=== PATIENT | female | born 1975 | race Caucasian/White ===

== ENCOUNTER 2017-07-18 15:33 | Emergency (ER) | payer OTHER ==
[2017-07-18 15:42] VITALS: BP 118/61; PULSE 95; TEMP 98.9; BMI 30.8
--- NOTE | 2017-07-18 17:30 | PDOC ---
History of Present Illness - General Chief Complaint: Pain Stated Complaint: LT FOOT PAIN Time Seen by Provider: 07/18/17 16:05 History Source: Patient Exam Limitations: No Limitations - History of Present Illness Initial Comments: 07/18/17 17:28 42 yr female with c/o left ankle pain for 4 days since fall 5 days ago. Pt has history of fall . Pt ambulatory no acute distress. Past History - Past Medical History Allergies/Adverse Reactions: Allergies Allergy/AdvReac Type Severity Reaction Status Date / Time TREE FRUITS Allergy Uncoded 07/18/17 15:41 Home Medications: Ambulatory Orders NK [No Known Home Medication] 07/18/17 Other medical history: NONE - Psycho/Social/Smoking Cessation Hx Anxiety: No Suicidal Ideation: No Smoking History: Never smoked Hx Alcohol Use: No Drug/Substance Use Hx: No Substance Use Type: None *Physical Exam - Vital Signs Last Vital Signs Temp Pulse Resp BP Pulse Ox 98.9 F 95 H 20 118/61 100 07/18/17 15:39 07/18/17 15:39 07/18/17 15:39 07/18/17 15:39 07/18/17 15:39 - Physical Exam General Appearance: Yes: Nourished, Appropriately Dressed HEENT: positive: EOMI, ARMANDO Respiratory/Chest: positive: Lungs Clear, Normal Breath Sounds Cardiovascular: positive: Regular Rhythm, Regular Rate Musculoskeletal: positive: Normal Inspection Extremity: positive: Tender (lateral malleolus left ankle , nv intact, FROM ) Integumentary: positive: Normal Color, Dry, Warm Neurologic: positive: Fully Oriented, Alert, Normal Mood/Affect, Normal Response , Motor Strength 5/5 ED Treatment Course - ADDITIONAL ORDERS Additional order review: Laboratory Results 07/18/17 16:32 Urine HCG, Qual Negative - RADIOLOGY Radiology Studies Ordered: Category Date Time Status ANKLE & FOOT-LEFT* [RAD] Stat Radiology 07/18/17 16:08 Taken Medical Decision Making - Medical Decision Making 07/18/17 17:43 cc: left ankle pain for 4-5 days after fall pt is ambualtory took tylenol earlier today will get xray to r/o fracture motrin for pain *DC/Admit/Observation/Transfer Diagnosis at time of Disposition: Left ankle sprain Qualifiers: Encounter type: initial encounter Involved ligament of ankle: unspecified ligament Qualified Code(s): S93.402A - Sprain of unspecified ligament of left ankle, initial encounter - Discharge Dispostion Disposition: HOME Condition at time of disposition: Good - Referrals Referrals: Joby Jean Baptiste MD [Staff Physician] - - Patient Instructions Additional Instructions: elevate and apply warm compresses to the area of pain every 2hrs for 20 minutes take motrin for pain as needed use the air cast splint while awake remove to sleep and bathe follow with the orthopedist Dr. Jean Baptiste for follow up if symptoms worsen or persist
== END 2017-07-18 18:03 | disposition home or self-care (01) ==
LOC: JERFT 15:33
DX: S93.402A Sprain of unspecified ligament of left ankle, initial encounter (principal); W19.XXXA Unspecified fall, initial encounter; Z91.81 History of falling; Y93.89 Activity, other specified; Y92.89 Other specified places as the place of occurrence of the external cause; Y99.8 Other external cause status
CPT/HCPCS: 73610-TC-LT; 73630-TC-LT; 84703; 99281-25

== ENCOUNTER 2018-12-03 21:41 | Emergency (ER) | payer OTHER ==
[2018-12-03 21:47] VITALS: BP 147/91; PULSE 87; TEMP 98.2
--- NOTE | 2018-12-03 22:29 | PDOC ---
History of Present Illness - General Chief Complaint: Sore Throat Stated Complaint: SORE THROAT Time Seen by Provider: 12/03/18 22:10 History Source: Patient Exam Limitations: No Limitations - History of Present Illness Initial Comments: 12/03/18 22:23 43 year old female with no medical or surgical history presents with complaints of sorethroat x 3 days. Also reports pain in right ear, mouth dryness . Took ibuprofen and tylenol with no relief of symptoms. Denies fever chills or headache or difficulty swallowing. Timing/Duration: other (3 days ) Severity: mild Modifying Factors: improves with: medication Associated Symptoms: reports: fever/chills Aspirin Received prior to arrival: Yes: no aspirin today Asa Contraindications(Core Measure): No: Allergy Beta Laura Contraindications(Core Measure): Yes: Not Prescribed Past History - Travel Traveled outside of the country in the last 30 days: No - Past Medical History Allergies/Adverse Reactions: Allergies Allergy/AdvReac Type Severity Reaction Status Date / Time TREE FRUITS Allergy Uncoded 12/03/18 21:47 Home Medications: Ambulatory Orders Amoxicillin - [Amoxicillin 500mg Capsule -] 500 mg PO TID #30 capsule 12/03/18 COPD: No - Suicide/Smoking/Psychosocial Hx Smoking History: Never smoked Hx Alcohol Use: No Drug/Substance Use Hx: No Substance Use Type: None Review of Systems - Review of Systems Able to Perform ROS?: Yes Is the patient limited Cambodian proficient: No Constitutional: Yes: Fever. No: Chills HEENTM: Yes: Ear Pain, Throat Pain Respiratory: No: Cough, Shortness of Breath, Wheezing, Productive cough Cardiac (ROS): No: Chest Pain, Lightheadedness ABD/GI: No: Nausea, Poor Appetite, Indigestion : No: Dysuria, Discharge, Hematuria Integumentary: No: Bruising, Erythema Neurological: No: Headache, Numbness, Paresthesia, Weakness *Physical Exam - Vital Signs Last Vital Signs Temp Pulse Resp BP Pulse Ox 98.2 F 87 18 147/91 98 12/03/18 21:45 12/03/18 21:45 12/03/18 21:45 12/03/18 21:45 12/03/18 21:45 - Physical Exam General Appearance: Yes: Nourished, Appropriately Dressed HEENT: positive: EOMI, Pharyngeal Erythema, TM Erythema (right ear with tm erythema). negative: Tonsillar Exudate Neck: positive: Supple. negative: Lymphadenopathy (R), Lymphadenopathy (L) Respiratory/Chest: positive: Lungs Clear, Normal Breath Sounds Cardiovascular: positive: Regular Rate, S1, S2 Extremity: positive: Normal Capillary Refill, Normal Inspection Neurologic: positive: escort service attendant II-XII NML intact, Fully Oriented, Alert Moderate Sedation - Procedure Monitoring Vital Signs: Procedure Monitoring Vital Signs Temperature 98.2 F 12/03/18 21:45 Pulse Rate 87 12/03/18 21:45 Respiratory Rate 18 12/03/18 21:45 Blood Pressure 147/91 12/03/18 21:45 O2 Sat by Pulse Oximetry (%) 98 12/03/18 21:45 Medical Decision Making - Medical Decision Making 12/03/18 22:27 43 year old female with no medical or surgical history presents with complaints of sorethroat x 3 days. Also reports pain in right ear, mouth dryness . Took ibuprofen and tylenol with no relief of symptoms. Denies fever chills or headache or difficulty swallowing. plan rx: amoxicillin *DC/Admit/Observation/Transfer Diagnosis at time of Disposition: Otitis media Qualifiers: Otitis media type: unspecified Chronicity: acute Qualified Code(s): H66.90 - Otitis media, unspecified, unspecified ear Pharyngitis Qualifiers: Pharyngitis/tonsillitis etiology: unspecified etiology Qualified Code(s): J02.9 - Acute pharyngitis, unspecified - Discharge Dispostion Disposition: HOME Condition at time of disposition: Good Decision to Admit order: No - Prescriptions Prescriptions: Amoxicillin - [Amoxicillin 500mg Capsule -] 500 mg PO TID #30 capsule - Referrals - Patient Instructions Printed Discharge Instructions: Middle Ear Infection, Sore Throat Additional Instructions: Please drink plenty fluids to keep hydrated May suck on hard candy to soothe throat Take medication for pain and fever Take antibiotics for 10 days until complete Call primary for follow up appointment Return to ed for worsening symptoms - Post Discharge Activity Forms/Work/School Notes: Back to Work
[2018-12-03] MEDS ORDERED: IBUPROFEN 600 MG TABLET (FP) PO ONE ×2 (22:41→22:44)
== END 2018-12-03 22:55 | disposition home or self-care (01) ==
LOC: JERFT 21:41
DX: H66.91 Otitis media, unspecified, right ear (principal); J02.9 Acute pharyngitis, unspecified
CPT/HCPCS: 99281-25